=== PATIENT | male | born 1950 | race Caucasian/White ===

== ENCOUNTER 2017-03-20 19:40 | Emergency (ER) | payer SELFPAY ==
[~2017-03-20] VITALS: Wt 99.5 kg
[~2017-03-20 19:40] MED LIST: HYDR-3498 PO; IBUP800T25 PO
== END 2017-03-21 00:25 | disposition left against medical advice (07) ==
LOC: E/R 19:40
DX: Z53.21 Procedure and treatment not carried out due to patient leaving prior to being seen by health care provider (principal)

== ENCOUNTER 2019-02-01 00:11 | Emergency (ER) | payer SELFPAY ==
[~2019-02-01] VITALS: Ht 172.7 cm; Wt 102.7 kg
[~2019-02-01 00:11] MED LIST changes: -IBUP800T25 PO; +IBUP800T48 PO
[2019-02-01 00:13] VITALS: BP 191/90; PULSE 90; RESP 18; Ht 172.7 cm; Wt 102.7 kg
[2019-02-01] MEDS ORDERED: IBUP-1542 PO (07:23)
== END 2019-02-01 03:29 | disposition left against medical advice (07) ==
LOC: FTE 00:11
DX: Z53.21 Procedure and treatment not carried out due to patient leaving prior to being seen by health care provider (principal)

== ENCOUNTER 2019-02-01 05:22 | Emergency (ER) | payer MEDICARE, BC ==
[~2019-02-01] VITALS: Ht 165.1 cm; Wt 102.2 kg
[2019-02-01 05:28] VITALS: Ht 165.1 cm; Wt 102.2 kg
[2019-02-01] MEDS ORDERED: KETOROLAC 30 MG INJ IM STA (06:23)
[2019-02-01] MEDS ORDERED: IBUP-1542 PO (07:23)
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
[2019-02-01 08:13] VITALS: BP 156/87; PULSE 84; RESP 17
== END 2019-02-01 08:14 | disposition home or self-care (01) ==
LOC: E/R 05:22
DX: R07.89 Other chest pain (principal); I10 Essential (primary) hypertension
CPT/HCPCS: 71045; 93005; 96372; 99284; J1885